=== PATIENT | female | born 1990 | race Caucasian/White ===

== ENCOUNTER 2017-02-08 20:49 | Emergency (ER) | payer BC, SELFPAY ==
[2017-02-08] MEDS ORDERED: Lidocaine 1% 20 ML MDV ONE (21:08)
[2017-02-08] MEDS ORDERED: Sulfameth/Trimethoprim DS 800-160mg TAB ONE (21:27)
== END 2017-02-08 21:33 | disposition home or self-care (01) ==
LOC: MADERS 20:49
DX: L05.01 Pilonidal cyst with abscess (principal); F17.210 Nicotine dependence, cigarettes, uncomplicated
CPT/HCPCS: 10080; 87070; 87076; 87205; J2001

== ENCOUNTER 2017-04-18 11:01 | Emergency (ER) | payer SELFPAY ==
[2017-04-18] MEDS ORDERED: Erythromycin Base 0.5% Ophth Oint 3.5 gm Tube ONE (11:30)
== END 2017-04-18 11:45 | disposition home or self-care (01) ==
LOC: MADERS 11:01
DX: H10.9 Unspecified conjunctivitis (principal); F17.210 Nicotine dependence, cigarettes, uncomplicated
CPT/HCPCS: 99283

== ENCOUNTER 2019-06-20 20:46 | Emergency (ER) | payer SELFPAY | END 2019-06-20 21:10 | disposition home or self-care (01) | LOC: MADERS 20:46 | DX: J20.9 Acute bronchitis, unspecified (principal); F17.210 Nicotine dependence, cigarettes, uncomplicated | CPT/HCPCS: 99283 ==